=== PATIENT | female | born 1995 | race Caucasian/White ===

== ENCOUNTER 2017-11-13 18:13 | Emergency (ER) | payer MEDICAID ==
[~2017-11-13] VITALS: Ht 165.1 cm; Wt 49.4 kg
[2017-11-13 19:48] VITALS: Ht 165.1 cm; Wt 49.4 kg
[2017-11-13 20:25] VITALS: BP 128/76
== END 2017-11-13 20:25 | disposition home or self-care (01) ==
LOC: ED 18:13
DX: M54.2 Cervicalgia (principal); M54.5 Low back pain; M79.1 Myalgia; V47.6XXA Car passenger injured in collision with fixed or stationary object in traffic accident, initial encounter; Y93.89 Activity, other specified; Y99.8 Other external cause status; Y92.89 Other specified places as the place of occurrence of the external cause

== ENCOUNTER 2018-10-29 23:19 | Emergency (ER) | payer OTHER, MEDICAID ==
[~2018-10-29] VITALS: Ht 157.5 cm; Wt 51.3 kg
[2018-10-29 23:47] VITALS: BP 147/85
== END 2018-10-29 23:47 | disposition home or self-care (01) ==
LOC: ED 23:19
DX: K08.89 Other specified disorders of teeth and supporting structures (principal); H92.02 Otalgia, left ear